=== PATIENT | male | born 1945 | race Caucasian/White ===

== ENCOUNTER 2018-03-24 16:42 | Inpatient (IN) | payer MEDICARE ==
[~2018-03-24] VITALS: Ht 182.9 cm; Wt 106.5 kg
[2018-03-24 16:45] VITALS: BP 111/54
[2018-03-24 18:35] LABS: HEMATOCRIT 35.7 % (39.0-50.0); HEMOGLOBIN 12.5 g/dl (14.0-18.0); IMMATURE GRANULOCYTES 0.3 % (0.0-1.0); MEAN CELL VOLUME 95.2 fL CALC (80.0-100.0); MEAN CORPUSCULAR HGB 33.3 pG CALC (26.0-32.0); NEUT# 5.46 thou/uL (1.82-7.42); RED BLOOD COUNT 3.75 mill/uL (4.70-6.10); RED CELL DISTRI WIDTH 13.2 % (11.5-15.5)
[2018-03-24 18:56] LABS: ALKALINE PHOSPHATASE 137 u/l (38-126); ANION GAP 16 (6-22 (CALC)); BILIRUBIN, TOTAL 1.3 mg/dL (0.0-1.4); BUN 16 mg/dL (8-23); BUN/CREATININE RATIO 19 (12-20 (CALC)); CARBON DIOXIDE 25 mmol/l (22-30); CHLORIDE 92 mmol/l (95-108); CREATININE 0.8 mg/dL (0.7-1.3); GFR > 60 ML/MIN (>=60 (CALC)); GFR FOR AFR.AMER. > 60 ML/MIN (>=60 (CALC)); POTASSIUM 4.2 mmol/l (3.5-5.1); SGOT/AST 26 u/l (19-48); SGPT/ALT 40 u/l (11-66); SODIUM 129 mmol/l (137-146)
[2018-03-24 19:00] VITALS: BP 136/67
[2018-03-24 21:00] VITALS: BP 159/71
[2018-03-24 23:00] VITALS: BP 156/62
[2018-03-25] VITALS (9 sets, daily range): BP systolic 114–146; BP diastolic 62–88
[2018-03-25 05:30] LABS: URINE BILIRUBIN - DIPSTICK NEGATIVE (NEGATIVE); URINE BLOOD DIPSTICK TRACE-INTACT (NEGATIVE); URINE COLOR YELLOW; URINE GLUCOSE - DIPSTICK NEGATIVE (NEGATIVE); URINE KETONE NEGATIVE (NEGATIVE); URINE LEUK ESTERASE NEGATIVE (Negative); URINE NITRITE - DIPSTICK NEGATIVE (Negative); URINE PH 6.5 (4.5-8.0); URINE PROTEIN - DIPSTICK NEGATIVE (NEG-TRACE)
[2018-03-25 05:48] LABS: URINE CLARITY CLEAR
[2018-03-25 06:13] LABS: ALBUMIN 3.8 g/dL (3.2-5.0); ALKALINE PHOSPHATASE 129 u/l (38-126); ANION GAP 16 (6-22 (CALC)); BILIRUBIN, TOTAL 1.2 mg/dL (0.0-1.4); BUN 14 mg/dL (8-23); BUN/CREATININE RATIO 20 (12-20 (CALC)); CARBON DIOXIDE 22 mmol/l (22-30); CHLORIDE 94 mmol/l (95-108); CREATININE 0.7 mg/dL (0.7-1.3); GFR > 60 ML/MIN (>=60 (CALC)); GFR FOR AFR.AMER. > 60 ML/MIN (>=60 (CALC)); POTASSIUM 4.6 mmol/l (3.5-5.1); SGOT/AST 24 u/l (19-48); SGPT/ALT 37 u/l (11-66); SODIUM 128 mmol/l (137-146); TOTAL PROTEIN 6.7 g/dL (6.3-8.2)
[2018-03-25] MEDS ORDERED: METOPROL TAR25 MG PO (10:48)
[2018-03-25] MEDS ORDERED: EQ ASPIRIN81 M1 PO (10:56)
[2018-03-25] MEDS ORDERED: TAMSULOSIN0.4 MG PO (10:59)
[2018-03-25] MEDS ORDERED: FINASTERIDE5 MG PO (11:01)
[2018-03-25] MEDS ORDERED: XARELTO20 MG PO (11:03)
[2018-03-25] MEDS ORDERED: ATORVASTATIN CA40 MG PO (11:06)
[2018-03-25] MEDS ORDERED: TESSALON PERLE100 MG PO (11:10)
[2018-03-25] MEDS ORDERED: LOSARTAN POT25 MG PO (11:11)
[2018-03-25] MEDS ORDERED: VITAMIN D32000 UNIT PO (11:21)
[2018-03-25] MEDS ORDERED: VIT E COMPL1000 UNIT PO (11:23)
[2018-03-25] MEDS ORDERED: VITAMIN B-122500 MCG SL (11:26)
[2018-03-25] MEDS ORDERED: BIO-FLAX1000 MG PO (11:27)
[2018-03-25] MEDS ORDERED: IRON325 M1 PO (11:30)
[2018-03-26] VITALS (7 sets, daily range): BP systolic 111–129; BP diastolic 59–74
[2018-03-26 05:48] LABS: ANION GAP 15 (6-22 (CALC)); BUN 16 mg/dL (8-23); BUN/CREATININE RATIO 21 (12-20 (CALC)); CARBON DIOXIDE 22 mmol/l (22-30); CHLORIDE 98 mmol/l (95-108); CREATININE 0.8 mg/dL (0.7-1.3); GFR > 60 ML/MIN (>=60 (CALC)); GFR FOR AFR.AMER. > 60 ML/MIN (>=60 (CALC)); MAGNESIUM 1.7 mg/dL (1.6-2.3); POTASSIUM 4.5 mmol/l (3.5-5.1); SODIUM 131 mmol/l (137-146)
[2018-03-26 05:54] LABS: HEMATOCRIT 35.3 % (39.0-50.0); HEMOGLOBIN 12.4 g/dl (14.0-18.0); IMMATURE GRANULOCYTES 0.8 % (0.0-1.0); MEAN CELL VOLUME 95.1 fL CALC (80.0-100.0); MEAN CORPUSCULAR HGB 33.4 pG CALC (26.0-32.0); MEAN CORPUSCULAR HGB CONC 35.1 g/L CALC (32.0-36.0); NEUT# 5.38 thou/uL (1.82-7.42); RED BLOOD COUNT 3.71 mill/uL (4.70-6.10); RED CELL DISTRI WIDTH 13.1 % (11.5-15.5)
[2018-03-27 05:36] VITALS: BP 113/63
[2018-03-27 08:46] VITALS: BP 136/76
[2018-03-27 11:24] VITALS: BP 126/49
[2018-03-27] MEDS ORDERED: LEVAQUIN750 MG PO (12:32)
[2018-03-27] MEDS ORDERED: PREDNISONE10 MG PO (12:32)
[2018-03-27] MEDS ORDERED: ROBITUSSIN AC10 ML PO (12:32)
== END 2018-03-27 13:36 | disposition home or self-care (01) | DRG 194 ==
LOC: ICU 16:42 → MS2 03-25 16:28
PROVIDERS: Nurse Practitioner Family; ADMIT Internal Medicine; ATTEND Internal Medicine
DX: J18.9 Pneumonia, unspecified organism (principal); E87.1 Hypo-osmolality and hyponatremia; I48.0 Paroxysmal atrial fibrillation; I10 Essential (primary) hypertension; I25.10 Atherosclerotic heart disease of native coronary artery without angina pectoris; N40.0 Benign prostatic hyperplasia without lower urinary tract symptoms; M19.90 Unspecified osteoarthritis, unspecified site; Z95.3 Presence of xenogenic heart valve; Z87.891 Personal history of nicotine dependence; Z79.01 Long term (current) use of anticoagulants; Z88.1 Allergy status to other antibiotic agents; Z86.19 Personal history of other infectious and parasitic diseases; Z95.1 Presence of aortocoronary bypass graft
CPT/HCPCS: Q9967